=== PATIENT | female | born 1990 | race Caucasian/White ===

== ENCOUNTER 2018-07-21 07:06 | Emergency (ER) | payer MEDICAID, OTHER ==
[~2018-07-21] VITALS: Ht 154.9 cm; Wt 100.0 kg
[~2018-07-21 07:06] MED LIST: NOCURR
[2018-07-21 10:55] LABS: INFLUENZA TYPE A NEGATIVE FOR TYPE A (NEGATIVE); INFLUENZA TYPE B NEGATIVE FOR TYPE B (NEGATIVE)
[2018-07-21 11:39] VITALS: BP 139/83
== END 2018-07-21 11:42 | disposition home or self-care (01) ==
LOC: EMS 07:09
DX: J06.9 Acute upper respiratory infection, unspecified (principal); B34.9 Viral infection, unspecified; E05.90 Thyrotoxicosis, unspecified without thyrotoxic crisis or storm; J45.909 Unspecified asthma, uncomplicated
CPT/HCPCS: 87804

== ENCOUNTER 2021-09-03 15:27 | Emergency (ER) | payer OTHER ==
[~2021-09-03] VITALS: Ht 154.9 cm; Wt 88.0 kg
[2021-09-03] MEDS ORDERED: PERTUSS(ACELL),DIPH,TET VAC/PF 0.5 ML SYRINGE IM. ONE (17:15)
[2021-09-03] MEDS ORDERED: METHOCARBAMOL 500 MG TABLET PO ONE (17:15)
[2021-09-03] MEDS ORDERED: LIDOCAINE 5% TRANSDERMAL PATCH TD ONE (17:15)
[2021-09-03] MEDS ORDERED: KETOROLAC TROMETHAMINE 30 MG/ML VIAL IM ONE (17:15)
[2021-09-03] MEDS ORDERED: BACITRACIN 0.9 GM PACKET OINTMENT TP ONE (19:15)
[2021-09-03] MEDS ORDERED: IBUP-2070 PO (20:02)
[2021-09-03] MEDS ORDERED: METH-659 PO (20:02)
[2021-09-03 20:14] VITALS: BP 134/91
== END 2021-09-03 20:16 | disposition home or self-care (01) ==
LOC: EMS 15:33
DX: S50.812A Abrasion of left forearm, initial encounter (principal); M54.50 Low back pain, unspecified; V49.9XXA Car occupant (driver) (passenger) injured in unspecified traffic accident, initial encounter; Y93.89 Activity, other specified; Y92.89 Other specified places as the place of occurrence of the external cause; Y99.8 Other external cause status
CPT/HCPCS: 29125; 72100; 73110; 90471; 90715; 96372; 99284; J1885; 29280